=== PATIENT | male | born 1980 | race Two or more races ===

== ENCOUNTER 2023-05-01 23:04 | Emergency (ER) | payer OTHER ==
[~2023-05-01] VITALS: Ht 172.7 cm; Wt 63.5 kg
== END 2023-05-02 | disposition left against medical advice (07) ==
LOC: ER 23:05
DX: Z53.21 Procedure and treatment not carried out due to patient leaving prior to being seen by health care provider (principal)

== ENCOUNTER 2023-10-03 06:45 | Inpatient (IN) | payer OTHER ==
[~2023-10-03] VITALS: Ht 170.2 cm; Wt 90.7 kg
[~2023-10-03 06:45] MED LIST: FLUMAZENIL 0.5 MG/5 ML ML IV ONE; NALOXONE HCL 0.4 MG/ML AMPUL ONE; NEOMYCIN/POLYMYXIN B/HYDROCORT 20 DR/ML BOTTLE OT ONE
--- NOTE | 2023-10-03 06:59 | NUR ---
SE RECIBE PTE ALERTA Y ORIENTADO POR NADIA ESFERAS CON NON-REBREATHER, EMT REFIERE QUE ENCONTRARON A PTE INCONCIENTE AL FRENTE DEL HOTEL LA BARBIE, POR EL CUAL LE ADMINISTRARON NARCAN 4MG INHALADO Y NARCAN 4MG IV. SE UBICA EN KAYCEE #1 DE CRITICO, SE CONECTA A MONITOR CARDIACO, NBP Y OXIMETRIA CONTINUA. PTE CON CANALIZACION DE AMBUILANCIA EN BRAZO DERECHO, PERMANECE PATENTE RON DE EDEMA Y ERITEMA. МАРИЯ MCCLENDON LE ADMINISTRA NARCAN 4MG IV Y ROMAXICON 4MG IV ELISE ORDEN MEDICA DE . SE COLOCA MANTA TERMICA. EMT REFIERE QUE AL MOMENTO DE RECOGER PTE LE ENCONTRARON UN SACO DE POLVO SHIPLEY EN PERTENENCIAS DE PTE.
[2023-10-03] MEDS ORDERED: NALOXONE HCL 0.4 MG/ML AMPUL IV STA (07:05)
[2023-10-03] MEDS ORDERED: FLUMAZENIL 0.5 MG/5 ML ML IV STA (07:05)
--- NOTE | 2023-10-03 07:20 | NUR ---
SE RECIBE PTE ALERTA Y ORIENTADO POR NADIA ESFERAS CON NON-REBREATHER, EMT REFIERE QUE ENCONTRARON A PTE INCONCIENTE AL FRENTE DEL HOTEL LA BARBIE, POR EL CUAL LE ADMINISTRARON NARCAN 0.4MG INHALADO Y NARCAN 0.4MG IV. SE UBICA EN #1 DE CRITICO, SE CONECTA A MONITOR CARDIACO, NBP Y OXIMETRIA CONTINUA. PTE CON CANALIZACION DE AMBUILANCIA EN BRAZO DERECHO, PERMANECE PATENTE RON DE EDEMA Y ERITEMA. МАРИЯ MCCLENDON LE ADMINISTRA NARCAN 4MG IV Y ROMAXICON 4MG IV ELISE ORDEN MEDICA DE . SE COLOCA MANTA TERMICA. EMT REFIERE QUE AL MOMENTO DE RECOGER PTE LE ENCONTRARON UN SACO DE POLVO SHIPLEY EN PERTENENCIAS DE PTE.
[2023-10-03 07:39] LABS: HEMATOCRIT 39.2 % (39.0-48.0); HEMOGLOBIN 13.4 g/dL (13-16.00); MEAN CELL VOLUME 98.7 fL (80.0-100.00); MEAN CORPUSCULAR HEMOGLOBIN 33.6 pg (27.00-32.0); PLATELET COUNT 304 K/uL (150-450); RED BLOOD COUNT 3.97 M/uL (4.00-6.00); RED CELL DISTRIBUTION WIDTH 14.8 % (11.5-14.5)
[2023-10-03 08:08] LABS: INR 0.94; PARTIAL THROMBOPLASTIN TIME 25.1 SECONDS (22.0-34.0); PROTHROMBIN TIME 9.9 SECONDS (9.0-11.5)
--- NOTE | 2023-10-03 08:48 | NUR ---
0700 SE RECIBE PTE DE TURNO ANTERIOR EL MISMO SE OBSERVA CON NON REBREATHER MASK A 100%, CONECTADO A MONITOR CARDIACO Y OXIMETRIA DE PULSO. CANALIZACIONES EN BRAZO LAUREN #22 #18 POR DONDE PERMANECE EL H/L. PACIENTE CON MANTA TERMICA EN CAMA CON BARANDAS ELEVADAS. SE CAMBIA MASK POR CANULA NASAL A 3 LITROS LA CUAL TOLERA EN TOTALIDAD. SE REALIZAN MUESTRAS DE LAB Y SE ENVIAN DE FORMA INMEDIATA. SE OBSERVA PACIENTE EN COMPLETO DESCANSO DONDE SE LE TRATA DE EDUCAR SOBRE MUESTRA DE ORINA PENDIENTE Y EL MISMO NO PARECE ENTENDER. PERSONAL DE PLACAS REALIZA LA MISMA Y SE TASHA PACIENTE EN CAMA CON VITALES ESTABLES EN ESPERA DE RESULTADOS DE LAB.
[2023-10-03 09:02] LABS: ALBUMIN 3.1 gm/dL (3.4-5.0); BILIRUBIN TOTAL 0.17 mg/dL (0.3-1.2); CALCIUM 8.8 mg/dL (8.5-10.1); CREATININE SERUM 0.75 mg/dL (0.70-1.30); GFR 113.13; GLOBULINA 3.4 G/DL (2.4-3.5); POTASSIUM 4.27 mEq/L (3.5-5.1); TOTAL PROTEIN 6.5 gm/dL (6.4-8.2)
[2023-10-03] MEDS ORDERED: ASPIRIN 325 MG TABLET PO ONE (10:00)
[2023-10-03] MEDS ORDERED: NITROGLYCERIN IN 5 % DEXTROSE 250 ML IV SCH (10:00)
[2023-10-03] MEDS ORDERED: TICAGRELOR 90 MG TABLET PO ONE (10:00)
[2023-10-03] MEDS ORDERED: NITROGLYCERIN IN 5 % DEXTROSE 50 MG/250 ML BOTTLE IV ONE (10:01)
--- NOTE | 2023-10-03 10:40 | NUR ---
SE EDUCA A PTE SOBRE ORDENES MEDICAS EL MISMO REFIERE ENTENDER. SE ADMINSITRA MEDICACION ELISE ORDEN DE DR GARCIA. SE TASHA PACIENTE BAJO OBSERVACION POR CUALQUIER CAMBIO SIGNIFICATIVO. .
[2023-10-03] MEDS ORDERED: ONDANSETRON HCL 4 MG in 0.9 % SODIUM CHLORIDE 50 ML IV PRN (14:15)
[2023-10-03] MEDS ORDERED: FAMOTIDINE/PF 20 MG/2 ML VIAL IV SCH (14:15)
[2023-10-03] MEDS ORDERED: LORAZEPAM0.5 MG (14:28)
[2023-10-03] MEDS ORDERED: FAMOTIDINE/PF 20 MG/2 ML VIAL ONE ×2 (14:34→17:22)
[2023-10-03 15:13] LABS: CHOL HDL RATIO 2.5 (0-5.0)
[2023-10-03 15:19] LABS: INR 0.98; PARTIAL THROMBOPLASTIN TIME 28.5 SECONDS (22.0-34.0); PROTHROMBIN TIME 10.3 SECONDS (9.0-11.5)
[2023-10-03 18:26] LABS: COCAINE POSITIVE (NEGATIVE); METHADONE NEGATIVE (NEGATIVE); OPIATES POSITIVE (NEGATIVE); THC ( Cannabinoids) NEGATIVE (NEGATIVE)
[2023-10-04 03:19] LABS: ABG PH 7.409 (7.35-7.45); ABG PO2 79.9 mmHg (80-100); ABG pCO2 44.2 mmHg (35-45)
[2023-10-04 03:20] LABS: BASE EXCESS 2.2 mmol/l; BICARBONATE 27.3 mmol/l (23-25); SaO2 95.9 %; Tco2 28.7 mmol/l; allen test SATISFACTORY; o2 21 %; puncture site RADIAL RIGHT
== END 2023-10-05 14:01 | disposition left against medical advice (07) | DRG 918 ==
LOC: ER 06:45 → SEC-K 14:12 → MEDJ 14:12
PROVIDERS: General Practice; ADMIT Internal Medicine; ATTEND Internal Medicine
PROC: 4A12X4Z Monitoring of Cardiac Electrical Activity, External Approach (ICD-10-PCS; principal; 2023-10-03)
PROC: 3E0F7SF Introduction of Other Gas into Respiratory Tract, Via Natural or Artificial Opening (ICD-10-PCS; 2023-10-03)
DX: T40.411A Poisoning by fentanyl or fentanyl analogs, accidental (unintentional), initial encounter (principal); I5A Non-ischemic myocardial injury (non-traumatic); R40.4 Transient alteration of awareness; T40.5X1A Poisoning by cocaine, accidental (unintentional), initial encounter; F10.20 Alcohol dependence, uncomplicated; F17.200 Nicotine dependence, unspecified, uncomplicated; R79.89 Other specified abnormal findings of blood chemistry; Y92.410 Unspecified street and highway as the place of occurrence of the external cause

== ENCOUNTER 2024-07-16 16:20 | Emergency (ER) | payer OTHER ==
[~2024-07-16] VITALS: Ht 175.3 cm; Wt 81.6 kg
[~2024-07-16 16:20] MED LIST changes: -FLUMAZENIL 0.5 MG/5 ML ML IV ONE; +LORAZEPAM0.5 MG; -NALOXONE HCL 0.4 MG/ML AMPUL ONE; -NEOMYCIN/POLYMYXIN B/HYDROCORT 20 DR/ML BOTTLE OT ONE
[2024-07-16 16:27] VITALS: BP 130/80; O2SAT 97
[2024-07-16] MEDS ORDERED: VISTARIL50 MG/ML IM (18:45)
[2024-07-16] MEDS ORDERED: hydrOXYzine PAMOATE 25 MG CAPSULE PO ONE ×2 (18:46→19:00)
[2024-07-16] MEDS ORDERED: HYDROXYZINE HCL25 MG PO (18:58)
== END 2024-07-16 19:03 | disposition home or self-care (01) ==
LOC: ER 16:20
DX: F41.8 Other specified anxiety disorders (principal)

== ENCOUNTER 2024-07-22 04:08 | Emergency (ER) | payer OTHER ==
[~2024-07-22] VITALS: Ht 175.3 cm; Wt 81.6 kg
[~2024-07-22 04:08] MED LIST changes: +HYDROXYZINE HCL25 MG PO; +VISTARIL50 MG/ML IM
[2024-07-22] MEDS ORDERED: ALPRAzolam 1 MG TABLET PO STA (05:48)
== END 2024-07-22 06:15 ==
LOC: ER 04:09
DX: F41.9 Anxiety disorder, unspecified (principal)